=== PATIENT | female | born 1995 | race African-American/Black ===

== ENCOUNTER 2022-04-29 09:44 | Emergency (ER) | payer OTHER, SELFPAY ==
--- NOTE | ~2022-04-29 | US_ITS ---
EXAMINATION: US OBSTETRICAL ULTRASOUND CLINICAL INFORMATION: Abdominal cramping, spotting. Beta hCG of 24 COMPARISON: None. LMP: 03/06/2022. Gestational age by maternal dates is 4 weeks, 6 days. Estimated date of delivery by maternal dates is 12/31/2022. TECHNIQUE: Multiple 2-D grayscale and Doppler transabdominal/transvaginal ultrasound images of the pelvis were obtained. FINDINGS: Uterus: Anteverted/anteflexed with homogeneous myometrial echotexture. The endometrial stripe measures up to 1.2 cm at the level the fundus without focal abnormality. No gestational sac was identified. The cervix is closed without abnormality. No free fluid in the cul-de-sac. Right ovary: 3.6 x 2.0 x 2.7 cm with a volume of 10.3 mL. No adnexal abnormality. Doppler showed no abnormality. Left ovary: 1.7 x 1.6 x 1.6 cm with a volume of 2.2 mL. No adnexal abnormality. Doppler showed no abnormality. US/US OB pelvic and transvaginal IMPRESSION: No intrauterine or extrauterine gestation identified. Continued correlation with beta-hCG levels is recommended. If beta-hCG levels rise, follow-up pelvic ultrasound is recommended as clinically indicated.
[2022-04-29 10:07] VITALS: BP 120/60; PULSE 65; RESP 16; TEMP 36.8; O2SAT 95; BMI 26.6
[2022-04-29 10:25] LABS: MANUAL DIFF FLAG NO
[2022-04-29 10:27] LABS: Basophils Percent Auto 0.5 % (0-2); Eosinophils Absolute Auto 0.1 X10*3/uL (0.0-0.4); Eosinophils Percent Auto 0.9 % (0-4); Hematocrit 45.3 % (37.0-47.0); Hemoglobin 15.4 g/dl (12.0-16.0); Imm Gran Abs Auto 0.03 X10*3/uL (0.00-0.03); Imm Gran Pct Auto 0.4 % (0.0-0.4); Lymphocytes Percent Auto 35.5 % (20-40); Mean Corpuscular Hemoglobin 28.9 pg (27.0-33.0); Mean Corpuscular Volume 85.2 fL (80.0-98.0); Monocytes Absolute Auto 0.4 X10*3/uL (0.1-1.2); Monocytes Percent Auto 5.1 % (2-11); Neutrophils Absolute Auto 4.9 x10*3/uL (2.0-8.3); Neutrophils Percent Auto 57.6 % (45-73); Platelet Count 372 X10*3/uL (160-400); Red Blood Count 5.32 X10*6/uL (4.20-5.50); Red Cell Distribution Width 13.1 % (11.0-16.0); White Blood Count 8.5 X10*3/uL (4.8-10.8)
[2022-04-29 10:30] VITALS: BP 129/82; PULSE 76; RESP 16; TEMP 36.8; O2SAT 96
--- NOTE | 2022-04-29 10:31 | ED_ITS ---
HPI - General Chief complaint: Vaginal Bleeding Stated complaint: 5 WEEKS SPOTTING Time Seen by Provider: 04/29/22 09:48 Source: patient Mode of arrival: ambulatory History of Present Illness HPI Narrative: 26-year-old female at about 4-5 weeks gestation presenting to the ED complaining of abdominal cramping and light vaginal spotting since this morning. Admits had 2 HCGs drawn recently which were not rising appropriately, one 23 and repeat 28, patient was instructed to come to the emergency department. Denies fever, chills, nausea, vomiting, vaginal discharge, dysuria/hematuria, flank pain MD Complaint: vaginal bleeding Onset (ago): hour(s) Related Data Allergies Allergy/AdvReac Type Severity Reaction Status Date / Time No Known Allergies Allergy Unverified 07/18/20 18:54 [No Known Allergies*] Review of Systems Review of Systems: Constitutional: No Fever, No Chills, No Fatigue, No Malaise ENT/Mouth: No Ear Pain, No Hoarseness, No sore throat, No Rhinorrhea, No Swallowing Difficulty Eyes: No Eye Pain, No Swelling, No Redness Cardiovascular: No Chest Pain, No SOB, No Dyspnea on Exertion, No Edema, No Palpitations Respiratory: No Cough, No Sputum, No Dyspnea Gastrointestinal: No Nausea, No Vomiting, No Diarrhea, No Constipation, + Abdominal pain Genitourinary: + vaginal spotting, No Dysuria, No Urinary Frequency, No Hematuria, No Flank Pain, No Urinary Flow Changes Musculoskeletal: No joint pain, No Myalgias, No Joint Swelling Skin: No Skin Lesions, No rash Neuro: No Weakness, No Dizziness, No Headache Yes all other systems are reviewed and are negative [facility] Past Medical History Attestation statement: The following information was validated with the patient. Social History Social History Advance Directives: No Advance Directives Information Provided: No Patient : Yes Physical Exam Vital Signs: Vital Signs: Last Vital Signs Temp 98.2 F 04/29/22 10:30 Pulse 67 04/29/22 13:56 Resp 14 04/29/22 13:56 BP 112/67 04/29/22 13:56 Pulse Ox 100 04/29/22 13:56 O2 Del Method 04/29/22 13:56 BMI result Body Mass Index 26.6 Const: General: cooperative, healthy appearing, no acute distress, alert and awake Orientation/consciousness: patient oriented x3 Limitations: no limitations HEENT: Head: Yes normal to inspection and Yes atraumatic Ears: hearing grossly normal bilaterally General nose exam: Normal external nose present Face and sinus: Yes normal facial exam Eyes: General: appearance normal, both eyes and all related structures EOM: EOMs intact bilaterally Neck: Neck: Yes normal visual inspection and Yes no meningeal signs Resp: Effort & Inspection: normal respiratory effort and no respiratory distress Cardio: Rate: regular rate Heart sounds: S1 normal heart sound present and S2 normal heart sound present GI: Inspection: Yes normal to inspection Palpation (GI): Soft to palpation, nontender, no guarding and not rigid : General: Yes no CVA tenderness Back/Spine/Pelvis: Back: no CVA tenderness Skin: Rashes: no rashes Wounds: no wounds Neuro: General: patient oriented x3, tone normal and no meningeal signs Gait exam (Neuro): Normal gait present Extrem: General: Yes normal to inspection Course Course Course Narrative: -beta-hCG 24, labs otherwise unremarkable. -patient is B positive > does not require RhoGAM US OB pelvic and transvaginal IMPRESSION: No intrauterine or extrauterine gestation identified. Continued correlation with beta-hCG levels is recommended. If beta-hCG levels rise, follow-up pelvic ultrasound is recommended as clinically indicated. >> will consult OBGYN -consult [facility] Solano who recommended repeat HCG in 48 hours, no Methotrexate recommended at this time. Patient was supplied with a lab slip to go to our lab on Wednesday. Patient also follows with [facility] which she will try to get in with. Discussed worrisome signs and symptoms and strict return precautions including that this is unlikely a viable and could be an ectopic. MDM - OB/Uterine Contractions MDM Narrative Medical decision making narrative: 26-year-old female at about 4-5 weeks gestation presenting to the ED complaining of abdominal cramping and light vaginal spotting since this morning. On exam vital signs stable, NAD/nontoxic appearing, abdomen soft/nontender, no CVA tenderness. On pelvic exam Concern for ectopic vs threatened vs missed vs normal Plan: Labs, UA, pelvic ultrasound Medical Records Attestation: I reviewed the patient's medical records. Lab Data Attestation: I reviewed the patient's lab results. Result diagrams: 04/29/22 10:17 04/29/22 10:17 Labs: Lab Results 04/29/22 04/29/22 04/29/22 Range/Units 10:17 10:17 10:17 WBC 8.5 (4.8-10.8) X10*3/uL RBC 5.32 (4.20-5.50) X10*6/uL Hgb 15.4 (12.0-16.0) g/dl Hct 45.3 (37.0-47.0) % MCV 85.2 (80.0-98.0) fL MCH 28.9 (27.0-33.0) pg MCHC 34.0 (31.0-35.0) g/dl RDW 13.1 (11.0-16.0) % Plt Count 372 (160-400) X10*3/uL MPV 9.0 L (9.4-12.3) fL Immature Gran % (Auto) 0.4 (0.0-0.4) % Neut % (Auto) 57.6 (45-73) % Lymph % (Auto) 35.5 (20-40) % [place] % (Auto) 5.1 (2-11) % Eos % (Auto) 0.9 (0-4) % Baso % (Auto) 0.5 (0-2) % Lymph # (Auto) 3.0 (1.2-4.9) X10*3/uL [place] # (Auto) 0.4 (0.1-1.2) X10*3/uL Eos # (Auto) 0.1 (0.0-0.4) X10*3/uL Baso # (Auto) 0.0 (0.0-0.2) X10*3/uL Abs Immat Gran (auto) 0.03 (0.00-0.03) X10*3/uL Absolute Neuts (auto) 4.9 (2.0-8.3) x10*3/uL Absolute Nucleated RBC 0.000 (0.0-0.012) X10*3/uL Nucleated RBC % (auto) 0.0 (0.0-0.2) /100WBC Sodium 139 (135-145) mmol/L Potassium 4.3 (3.3-5.1) mmol/L Chloride 106 (96-108) mmol/L Carbon Dioxide 25 (22-29) mmol/L Anion Gap 12 (12-20) BUN 7 L (9-16) mg/dL Creatinine 0.77 (0.5-1.4) mg/dL Estim Creat Clear Calc 116.4 Estimated GFR > 60 Random Glucose 86 (60-115) mg/dL Calcium 9.8 (8.4-10.2) mg/dL Magnesium 2.1 (1.6-2.6) mg/dL Total Bilirubin 0.8 (0.0-1.0) mg/dL AST 14 (5-31) U/L ALT 11 (0-31) U/L Alkaline Phosphatase 61 (39-117) U/L Total Protein 7.1 (6.5-8.0) g/dL Albumin 4.5 (3.5-5.0) g/dL Lipase 47 (8-78) U/L Beta HCG, Quant 24 mIU/mL Urine Color Urine Appearance Urine pH (5.0-8.0) Ur Specific [place] (1.005-1.025) Urine Protein (NEG-TRACE) MG/DL Urine Glucose (UA) (NEG) MG/DL Urine Ketones (NEG) MG/DL Urine Blood (NEG) Urine Nitrite (NEG) Ur Leukocyte Esterase (NEG) Blood Type 04/29/22 04/29/22 Range/Units 10:43 11:49 WBC (4.8-10.8) X10*3/uL RBC (4.20-5.50) X10*6/uL Hgb (12.0-16.0) g/dl Hct (37.0-47.0) % MCV (80.0-98.0) fL MCH (27.0-33.0) pg MCHC (31.0-35.0) g/dl RDW (11.0-16.0) % Plt Count (160-400) X10*3/uL MPV (9.4-12.3) fL Immature Gran % (Auto) (0.0-0.4) % Neut % (Auto) (45-73) % Lymph % (Auto) (20-40) % [place] % (Auto) (2-11) % Eos % (Auto) (0-4) % Baso % (Auto) (0-2) % Lymph # (Auto) (1.2-4.9) X10*3/uL [place] # (Auto) (0.1-1.2) X10*3/uL Eos # (Auto) (0.0-0.4) X10*3/uL Baso # (Auto) (0.0-0.2) X10*3/uL Abs Immat Gran (auto) (0.00-0.03) X10*3/uL Absolute Neuts (auto) (2.0-8.3) x10*3/uL Absolute Nucleated RBC (0.0-0.012) X10*3/uL Nucleated RBC % (auto) (0.0-0.2) /100WBC Sodium (135-145) mmol/L Potassium (3.3-5.1) mmol/L Chloride (96-108) mmol/L Carbon Dioxide (22-29) mmol/L Anion Gap (12-20) BUN (9-16) mg/dL Creatinine (0.5-1.4) mg/dL Estim Creat Clear Calc Estimated GFR Random Glucose (60-115) mg/dL Calcium (8.4-10.2) mg/dL Magnesium (1.6-2.6) mg/dL Total Bilirubin (0.0-1.0) mg/dL AST (5-31) U/L ALT (0-31) U/L Alkaline Phosphatase (39-117) U/L Total Protein (6.5-8.0) g/dL Albumin (3.5-5.0) g/dL Lipase (8-78) U/L Beta HCG, Quant mIU/mL Urine Color YELLOW Urine Appearance HAZY Urine pH 6.5 (5.0-8.0) Ur Specific [place] 1.020 (1.005-1.025) Urine Protein NEG (NEG-TRACE) MG/DL Urine Glucose (UA) NEG (NEG) MG/DL Urine Ketones NEG (NEG) MG/DL Urine Blood NEG (NEG) Urine Nitrite NEG (NEG) Ur Leukocyte Esterase NEG (NEG) Blood Type B Positive Discharge Plan Discharge Clinical Impression: Elevated serum hCG, Vaginal spotting, Abdominal cramping Patient Disposition: Home, Self-Care Instructions: Abdominal Pain in (ED) Additional Instructions: Your hCG was 24 today YOU NEED REPEAT LABS IN 48 HOURS, EITHER AT OUR LAB OR AT YOUR OBGYN It is unlikely this is a viable , this could be an ectopic, is to to soon to tell exactly at this time. If you develop constant worsening abdominal pain, persistent vaginal bleeding, vaginal discharge, nausea or vomiting please return to the emergency department Referrals: Eugene Salgado MD [Physician] - 2 days
[2022-04-29 10:44] LABS: Alanine Aminotransferase 11 U/L (0-31); Albumin Level 4.5 g/dL (3.5-5.0); Alkaline Phosphatase 61 U/L (39-117); Anion Gap 12 (12-20); Aspartate Amino Transferase 14 U/L (5-31); Bilirubin Total 0.8 mg/dL (0.0-1.0); Blood Urea Nitrogen 7 mg/dL (9-16); Calcium 9.8 mg/dL (8.4-10.2); Carbon Dioxide 25 mmol/L (22-29); Chloride 106 mmol/L (96-108); Creatinine Clr Calc Pharmacy 116.4; Estimated Glomerular Filt Rate > 60; Glucose Random 86 mg/dL (60-115); Potassium 4.3 mmol/L (3.3-5.1); Sodium 139 mmol/L (135-145); Total Protein 7.1 g/dL (6.5-8.0)
[2022-04-29 10:47] LABS: HCG Quantitative 24 mIU/mL
[2022-04-29 10:50] LABS: Lipase 47 U/L (8-78); Magnesium 2.1 mg/dL (1.6-2.6)
[2022-04-29 12:00] VITALS: BP 98/59; PULSE 82; RESP 17; O2SAT 100
[2022-04-29 12:02] LABS: Appearance Urine HAZY; Color Urine YELLOW; Glucose Urine UA NEG (NEG); Leukocyte Esterase Urine NEG (NEG); Nitrite Urine NEG (NEG); PH 6.5 (5.0-8.0); Urine Blood NEG (NEG); Urine Ketones NEG (NEG); Urine Protein NEG (NEG-TRACE)
[2022-04-29 13:56] VITALS: BP 112/67; PULSE 67; RESP 14; O2SAT 100
--- NOTE | 2022-04-29 15:14 | P.CONOB_ITS ---
EMPLOYMENT EDUCATIONAL [employer]ORD - CN: HPI Data of Consult Consult date: 04/29/22 Primary Care Provider: Dorinda Mcgowan MD Consult Narrative Narrative: I was consulted on Tessy Roberts who is a 26 year old female at ? weeks gestation presenting to the ED complaining of abdominal cramping and light vaginal spotting since this morning.? The patient had 2 HCGs drawn recently which were not rising appropriately, one 23 and repeat 28, patient was instructed to come to the emergency department.? Denies fever, chills, nausea, vomiting, vaginal discharge, dysuria/hematuria, flank pain. Blood type Rh positive the following workup was done in the emergency room. H&H 15.4/45.3, hCG is 24. Ultrasound showed the following: No intrauterine or extrauterine gestation identified. Continued correlation with beta-hCG levels is recommended. If beta-hCG levels rise, follow-up pelvic ultrasound is recommended as clinically indicated. cc:: CC: OB PMFSH Social History Social History Advance Directives: No Advance Directives Information Provided: No Patient : Yes Meds Allergies Allergy/AdvReac Type Severity Reaction Status Date / Time No Known Allergies Allergy Unverified 07/18/20 18:54 [No Known Allergies*] [employer] Physical Exam Vitals Vital signs: Temp Pulse Resp BP Pulse Ox O2 Del Method 98.2 F 67 14 112/67 100 04/29/22 10:30 04/29/22 13:56 04/29/22 13:56 04/29/22 13:56 04/29/22 13:56 04/29/22 13:56 BMI result Body Mass Index 26.6 Constitutional General Appearance: Healthy appearing, Well-nourished and Well-developed Psychiatric Mood and Affect: active and alert, normal mood and normal affect Skin Appearance: No rashes and No lesions Lungs Respiratory Effort: No intercostal retractions Auscultation: Clear to auscultation Cardiovascular Auscultation: RRR Abdomen Auscultation/Inspection/Palpation: Normal bowel sounds, Soft, Non-distended and No tenderness Female Genitalia (Pelvic) Exam: Deferred Additional Comments: Physical exam per [facility]ARED Malone emergency room , abdominal exam soft nontender pelvic exam within normal [employer]MENT [employer]UC[employer] - Results Labs CBC & Chem 7: 04/29/22 10:17 04/29/22 10:17 Labs: Short CBC 04/29/22 Range/Units 10:17 WBC 8.5 (4.8-10.8) X10*3/uL Hgb 15.4 (12.0-16.0) g/dl Hct 45.3 (37.0-47.0) % Plt Count 372 (160-400) X10*3/uL BMP 04/29/22 10:17 Sodium 139 Potassium 4.3 Chloride 106 Carbon Dioxide 25 BUN 7 L Creatinine 0.77 Calcium 9.8 Liver Function 04/29/22 Range/Units 10:17 Total Bilirubin 0.8 (0.0-1.0) mg/dL AST 14 (5-31) U/L ALT 11 (0-31) U/L Alkaline Phosphatase 61 (39-117) U/L Albumin 4.5 (3.5-5.0) g/dL Urine 04/29/22 Range/Units 11:49 Urine Color YELLOW Urine Appearance HAZY Urine pH 6.5 (5.0-8.0) Ur Specific [place] 1.020 (1.005-1.025) Urine Protein NEG (NEG-TRACE) MG/DL Urine Glucose (UA) NEG (NEG) MG/DL Imaging US - abdomen: Radiologist's impression: ITS Impressions Pelvic/Transvag US 04/29/22 11:34 IMPRESSION: No intrauterine or extrauterine gestation identified. Continued correlation with beta-hCG levels is recommended. If beta-hCG levels rise, follow-up pelvic ultrasound is recommended as clinically indicated. Assessment and Plan (1) Early stage of : Status: Acute Discussed with YARED Malone in the emergency room the following Since hCG is not rising appropriately differential diagnosis includes ectopic versus SAB. Since the pelvic Ultrasound is negative and physical exam is benign, I recommend that the patient follows -up with her OBGYN office yara with repeat hCG in 48 hours, ectopic and SAB warnings to be given to patient, she is to come back to emergency room in case of abdominal pain, vaginal bleeding. This note was generated with a voice recognition program. Some errors may have been overlooked during the review of this note. Sometimes these errors may affect the content or meaning of a given sentence. I spent a total of 20 minutes reviewing the chart, communicating with the ER provider and documenting in the medical record
== END 2022-04-29 15:09 | disposition home or self-care (01) ==
PROVIDERS: Physician Assistant; Emergency Provider Emergency Medicine; PCP Internal Medicine
DX: O02.81 Inappropriate change in quantitative human chorionic gonadotropin (hCG) in early pregnancy (principal); O26.851 Spotting complicating pregnancy, first trimester; O26.891 Other specified pregnancy related conditions, first trimester; R10.9 Unspecified abdominal pain; Z3A.01 Less than 8 weeks gestation of pregnancy
CPT/HCPCS: 36415; 76801; 76817; 80053; 81003; 83690; 83735; 84702; 85025; 86900; 86901; 99284

== ENCOUNTER 2022-04-30 15:52 | Emergency (ER) | payer OTHER, SELFPAY ==
--- NOTE | ~2022-04-30 | US_ITS ---
EXAMINATION: US OBSTETRICAL ULTRASOUND CLINICAL INFORMATION: Positive hCG with vaginal bleeding. COMPARISON: 04/29/2022.. LMP: 03/26/2022. Gestational age by maternal dates is 5 weeks. Estimated date of delivery by maternal dates is 12/31/2022. TECHNIQUE: Ultrasound of the maternal pelvis is performed using transabdominal and transvaginal transducers. Transvaginal imaging is performed due to inadequate visualization transabdominally. M-mode Doppler is also performed. FINDINGS: The uterus is anteverted and measures 7.7 x 4.2 x 4.3 cm. No fibroids are identified. The endometrium measures 0.4 cm in thickness without discrete focal abnormality. No evidence of an intrauterine gestational sac. The ovaries are normal in morphology with preserved flow at the moment of this examination. The right ovary measures 2.7 x 1.7 x 1.6 cm and the left ovary measures 2.2 x 2.1 x 1.5 cm. No adnexal mass. No evidence of free fluid. US/US OB pelvic and transvaginal IMPRESSION: No sonographic evidence of a gestational sac. Recommend continued correlation with quantitative beta hCG to determine further management. The endometrium measures 0.4 cm in thickness with no discrete focal abnormality nor associated vascularity.
--- NOTE | ~2022-04-30 | US_ITS ---
EXAMINATION: US OBSTETRICAL ULTRASOUND CLINICAL INFORMATION: Positive hCG with vaginal bleeding. COMPARISON: 04/29/2022.. LMP: 03/26/2022. Gestational age by maternal dates is 5 weeks. Estimated date of delivery by maternal dates is 12/31/2022. TECHNIQUE: Ultrasound of the maternal pelvis is performed using transabdominal and transvaginal transducers. Transvaginal imaging is performed due to inadequate visualization transabdominally. M-mode Doppler is also performed. FINDINGS: The uterus is anteverted and measures 7.7 x 4.2 x 4.3 cm. No fibroids are identified. The endometrium measures 0.4 cm in thickness without discrete focal abnormality. No evidence of an intrauterine gestational sac. The ovaries are normal in morphology with preserved flow at the moment of this examination. The right ovary measures 2.7 x 1.7 x 1.6 cm and the left ovary measures 2.2 x 2.1 x 1.5 cm. No adnexal mass. No evidence of free fluid. US/US pelvic ovarian doppler IMPRESSION: No sonographic evidence of a gestational sac. Recommend continued correlation with quantitative beta hCG to determine further management. The endometrium measures 0.4 cm in thickness with no discrete focal abnormality nor associated vascularity.
[2022-04-30 15:57] VITALS: BP 112/69; PULSE 67; RESP 18; TEMP 36.4; O2SAT 99; BMI 29.2
--- NOTE | 2022-04-30 16:24 | ED_ITS ---
HPI - General Chief complaint: Vaginal Bleeding Stated complaint: 5 wks spotting Time Seen by Provider: 04/30/22 16:23 Source: patient Mode of arrival: ambulatory Limitations: no limitations History of Present Illness HPI Narrative: 26-year-old female approximately 4-5 weeks gestation presenting to the emergency department with complaints of vaginal bleeding X3 days. Patient tells me that she was seen here yesterday for abdominal pain and vaginal bleeding, she tells me that they were able to identify what was causing the issue. She reports that she is having vaginal bleeding she describes as spotting, she only notes the blood when she wipes. She tells me it got worse after having intercourse this morning. At this time she denies any pain with intercourse nausea, vomiting, abdominal pain, fevers, chills chest pain, shortness of breath. LMP March 26, 2022 Last 7 years ago MD Complaint: vaginal bleeding Related Data Previous Rx's Medication Instructions Recorded prenat.vits,roger,[id number] 1 tab PO BEDTIME #30 tabs 04/30/22 Allergies Allergy/AdvReac Type Severity Reaction Status Date / Time No Known Allergies Allergy Unverified 07/18/20 18:54 [No Known Allergies*] Review of Systems Review of Systems: Constitutional : No Weight loss, No Fever, No Chills, No Fatigue, No Malaise ENT/Mouth : No sore throat, No Rhinorrhea Eyes: No Eye Pain, No Swelling, No Redness Cardiovascular : No Chest Pain, No SOB, No Dyspnea on Exertion, No Orthopnea, No Edema, No Palpitations Respiratory : No Cough, No Sputum, No Wheezing Gastrointestinal : No Nausea, No Vomiting, No Diarrhea, No Constipation, No abdominal Pain, No Hematochezia, No Melena Genitourinary : No Dysuria, No Urinary Frequency, No Hematuria, + vaginal spotting Musculoskeletal : No joint pain, No Myalgias, No Joint Swelling Skin : No Skin Lesions, No rash Neuro : No Weakness, No Numbness, No Dizziness, No Headache Psych : No Anxiety/Panic, No Depression All other systems reviewed and are negative Yes all other systems are reviewed and are negative [facility] Past Medical History Attestation statement: The following information was validated with the patient. Source: old records reviewed and nursing notes reviewed Social History Social History Advance Directives: No Advance Directives Information Provided: No Physical Exam Vital Signs: Vital Signs: Last Vital Signs Temp 97.6 F 04/30/22 15:57 Pulse 67 04/30/22 15:57 Resp 18 04/30/22 15:57 BP 112/69 04/30/22 15:57 Pulse Ox 99 04/30/22 15:57 O2 Del Method 04/30/22 15:57 BMI result Body Mass Index 29.2 VSS Appearance: Alert.? Oriented X3.? No acute distress.? Head: Normocephalic, atraumatic, no step-offs or deformities Eyes: Pupils equal, round and reactive to light.? ENT: Pharynx normal.? Neck: Normal inspection.? Neck supple.? CVS: Normal heart rate and rhythm.? Pulses normal.? Respiratory: No respiratory distress.? Breath sounds normal.? Abdomen: Soft and nontender.? Skin: Skin warm and dry.? Normal skin color.? Normal skin turgor.? Sensitive exam: Normal external genitalia no lumps, lesions or masses noted, cervical os closed there is dark red blood noted within the vaginal canal and around the cervical os, unable to visualize any POC. No adnexal tenderness Extremities: No lower extremity edema.? No calf ttp. 5/5 strength to bilateral upper and lower extremities Neuro: Oriented X 3.? No motor deficit.? No sensory deficit. CN 2-12 intact Course Reevaluation(s) Reevaluation #1: Spoke to Dr. Naomi Freitas, today's hCG is 26, he explains to me that based off the patient's last menstrual period which was March 26, patient is around 5 weeks , and her hCG is not adequately rising which raises concerns for possible spontaneous or ectopic . I did discuss with him yes terday that patient had an ultrasound which was normal, however, he recommends a repeat ultrasound to rule out ectopic . Likely this can be managed on an outpatient basis with either a D&C, methotrexate or expectant management however will rule out life-threatening diagnoses. Time: 17:35 Reevaluation #2: CBC within normal limits. Chemistry with no acute electrolyte abnormalities requiring intervention. HCG 26, hCG yesterday was 24. Ultrasound pending at this time. Time: 19:16 Reevaluation #3: Ultrasound with no sonographic evidence of gestational sac. Recommend correlation with quantitative beta hCG. Endometrium 0.[address] Salgado came in to speak to patient. He educated patient on options. Patient would like to go with expected management. He did discussed methotrexate and suction D&C with patient however she did not want this. He recommended she comes in on Wednesday for repeat hCG and on Wednesday for repeat HCG, he will see her in his office on Wednesday. At this time patient will be discharged home with strict return pr ecautions. Advised her to return with new or worsening symptoms. At this time I feel comfortable with discharge home. Has not bleed through a single pad this visit, appears well. Stable vitals hemo dynamically stable. Time: 20:27 MDM - OB/Uterine Contractions MDM Narrative Medical decision making narrative: 1628 26 yo f presents for second day in a row for vaginal spotting worse after intercourse. PE benign Plan- labs, HCG, sensativ exam and obgyn consult Medical Records Attestation: I reviewed the patient's medical records. Lab Data Attestation: I reviewed the patient's lab results. Result diagrams: 04/30/22 16:59 04/30/22 16:59 Labs: Lab Results 04/30/22 04/30/22 04/30/22 Range/Units 16:00 16:59 16:59 WBC 10.8 (4.8-10.8) X10*3/uL RBC 4.73 (4.20-5.50) X10*6/uL Hgb 13.6 (12.0-16.0) g/dl Hct 40.0 (37.0-47.0) % MCV 84.6 (80.0-98.0) fL MCH 28.8 (27.0-33.0) pg MCHC 34.0 (31.0-35.0) g/dl RDW 12.9 (11.0-16.0) % Plt Count 357 (160-400) X10*3/uL MPV 8.8 L (9.4-12.3) fL Immature Gran % (Auto) 0.3 (0.0-0.4) % Neut % (Auto) 54.1 (45-73) % Lymph % (Auto) 37.2 (20-40) % [place] % (Auto) 6.8 (2-11) % Eos % (Auto) 1.1 (0-4) % Baso % (Auto) 0.5 (0-2) % Lymph # (Auto) 4.0 (1.2-4.9) X10*3/uL [place] # (Auto) 0.7 (0.1-1.2) X10*3/uL Eos # (Auto) 0.1 (0.0-0.4) X10*3/uL Baso # (Auto) 0.1 (0.0-0.2) X10*3/uL Abs Immat Gran (auto) 0.03 (0.00-0.03) X10*3/uL Absolute Neuts (auto) 5.9 (2.0-8.3) x10*3/uL Absolute Nucleated RBC 0.000 (0.0-0.012) X10*3/uL Nucleated RBC % (auto) 0.0 (0.0-0.2) /100WBC Sodium 138 (135-145) mmol/L Potassium 4.1 (3.3-5.1) mmol/L Chloride 107 (96-108) mmol/L Carbon Dioxide 24 (22-29) mmol/L Anion Gap 11 L (12-20) BUN 7 L (9-16) mg/dL Creatinine 0.75 (0.5-1.4) mg/dL Estim Creat Clear Calc 112.2 Estimated GFR > 60 Random Glucose 77 (60-115) mg/dL Calcium 9.4 (8.4-10.2) mg/dL Total Bilirubin 0.7 (0.0-1.0) mg/dL AST 15 (5-31) U/L ALT 8 (0-31) U/L Alkaline Phosphatase 54 (39-117) U/L Total Protein 6.4 L (6.5-8.0) g/dL Albumin 4.1 (3.5-5.0) g/dL Beta HCG, Quant 26 mIU/mL Critical Care Time Critical Care Time Critical Care Time: Yes Total Critical Care Time: 35 Attestation: I attest to this time spent taking care of the patient, obtaining history, physical, reviewing labs, imaging, speaking to my attending, speaking to specialist. Discharge Plan Discharge Clinical Impression: Threatened , Vaginal bleeding in Patient Disposition: Home, Self-Care Additional Instructions: Take your medications as prescribed. If you were prescribed antibiotics today, it is important that you take your medication to their entirety, do not skip any doses, do not finish them early. Follow-up with your primary care provider this week. Return to the emergency department with new or worsening symptoms. Such as fevers, chills, chest pain, shortness of breath, nausea, vomiting, dizziness, headache, vision changes, lethargy, worsening vaginal bleeding In case of emergency call 911 If you are bleeding through more than 2 pads per hour you must seek medical attention immediately. Please come to have an HCG done on Wednesday at the lab and on Wednesday. Please follow-up with Dr. Salgado as discussed on Wednesday. Please take over the counter vitamis. Prescriptions: New prenat.vits,roger,[id number] Tablet 1 tab PO BEDTIME Qty: 30 0RF Referrals: Dorinda Jones MD [Primary Care Provider] - 2 days Eugene Salgado MD [Physician] - 2 days Stand Alone Forms: Work/School Release
[2022-04-30 16:32] LABS: HCG Quantitative 26 mIU/mL
[2022-04-30 17:06] LABS: MANUAL DIFF FLAG NO
[2022-04-30 17:08] LABS: Basophils Absolute Auto 0.1 X10*3/uL (0.0-0.2); Basophils Percent Auto 0.5 % (0-2); Eosinophils Absolute Auto 0.1 X10*3/uL (0.0-0.4); Eosinophils Percent Auto 1.1 % (0-4); Hemoglobin 13.6 g/dl (12.0-16.0); Imm Gran Abs Auto 0.03 X10*3/uL (0.00-0.03); Imm Gran Pct Auto 0.3 % (0.0-0.4); Lymphocytes Percent Auto 37.2 % (20-40); Mean Corpuscular Hemoglobin 28.8 pg (27.0-33.0); Mean Corpuscular Volume 84.6 fL (80.0-98.0); Mean Platelet Volume 8.8 fL (9.4-12.3); Monocytes Absolute Auto 0.7 X10*3/uL (0.1-1.2); Monocytes Percent Auto 6.8 % (2-11); Neutrophils Absolute Auto 5.9 x10*3/uL (2.0-8.3); Neutrophils Percent Auto 54.1 % (45-73); Platelet Count 357 X10*3/uL (160-400); Red Blood Count 4.73 X10*6/uL (4.20-5.50); Red Cell Distribution Width 12.9 % (11.0-16.0); White Blood Count 10.8 X10*3/uL (4.8-10.8)
[2022-04-30 17:24] LABS: Alanine Aminotransferase 8 U/L (0-31); Albumin Level 4.1 g/dL (3.5-5.0); Alkaline Phosphatase 54 U/L (39-117); Anion Gap 11 (12-20); Aspartate Amino Transferase 15 U/L (5-31); Bilirubin Total 0.7 mg/dL (0.0-1.0); Blood Urea Nitrogen 7 mg/dL (9-16); Calcium 9.4 mg/dL (8.4-10.2); Carbon Dioxide 24 mmol/L (22-29); Chloride 107 mmol/L (96-108); Creatinine Clr Calc Pharmacy 112.2; Estimated Glomerular Filt Rate > 60; Glucose Random 77 mg/dL (60-115); Potassium 4.1 mmol/L (3.3-5.1); Sodium 138 mmol/L (135-145); Total Protein 6.4 g/dL (6.5-8.0)
--- NOTE | 2022-04-30 20:46 | P.CONOB_ITS ---
DISTRIBUTION SUPERVISOR - CN: HPI Data of Consult Consult date: 04/30/22 Primary Care Provider: Dorinda Mcgowan MD Consult Narrative Narrative: I was consulted on Tessy Roberts who is a 26 year old female who presented to the emergency room complaining of spotting after intercourse, no pelvic cramping/abdominal pain no nausea or vomiting or any other symptoms . The patient LMP is on 03/26, making her by today at 5 weeks of gestation. The patient had a positive test on 04/22 this was followed on 04/23 by beta HCG ordered by her OBGYN at [place], hCG was 22 repeat hCG on 04/27 was 28. The patient yesterday had some spotting and cramping came to emergency room hCG was 26, ultrasound showed no IUP and no adnexal masses, the patient was discharged home to follow-up with her OBGYN. Rh positive cc:: CC: PEDIATRIC ASSISTANT - Review of Systems Review of Systems ROS Unobtainable: All systems reviewed & are unremarkable except as noted in HPI and below Cardiovascular: Denies Palpatations, Loss of consciousness or Chest pain Respiratory: Denies Cough, Wheezing or Shortness of breath Musculoskeletal: Denies Low back pain Gastrointestinal: Denies Heartburn, Constipation, Diarrhea, Nausea or Vomiting Genitourinary: Denies Pain with urination, Burning with urination or Urinary frequency Neurological: Denies Migranes Psychological: Denies Depression OB [facility] Social History Social History Advance Directives: No Advance Directives Information Provided: No Meds Allergies Allergy/AdvReac Type Severity Reaction Status Date / Time No Known Allergies Allergy Unverified 07/18/20 18:54 [No Known Allergies*] DISTRIBUTION SUPERVISOR Physical Exam Vitals Vital signs: Temp Pulse Resp BP Pulse Ox O2 Del Method 97.6 F 67 18 112/69 99 04/30/22 15:57 04/30/22 15:57 04/30/22 15:57 04/30/22 15:57 04/30/22 15:57 04/30/22 15:57 BMI result Body Mass Index 29.2 Constitutional General Appearance: Healthy appearing, Well-nourished and Well-developed Psychiatric Mood and Affect: active and alert, normal mood and normal affect Skin Appearance: No rashes and No lesions Lungs Respiratory Effort: No intercostal retractions Auscultation: Clear to auscultation Cardiovascular Auscultation: RRR Abdomen Auscultation/Inspection/Palpation: Normal bowel sounds, Soft, Non-distended and No tenderness Female Genitalia (Pelvic) Vulva: No lesions Cervix: Grossly normal Uterus: Normal size Adnexa/Parametria: Adnexal Tenderness: None, Adnexal Mass: None, Parametrial Tenderness: None and Parametrial Mass: None Additional Comments: Minimal blood per vagina DISTRIBUTION SUPERVISOR - Results Labs CBC & Chem 7: 04/30/22 16:59 04/30/22 16:59 Labs: Short CBC 04/30/22 Range/Units 16:59 WBC 10.8 (4.8-10.8) X10*3/uL Hgb 13.6 (12.0-16.0) g/dl Hct 40.0 (37.0-47.0) % Plt Count 357 (160-400) X10*3/uL BMP 04/30/22 16:59 Sodium 138 Potassium 4.1 Chloride 107 Carbon Dioxide 24 BUN 7 L Creatinine 0.75 Calcium 9.4 Liver Function 04/30/22 Range/Units 16:59 Total Bilirubin 0.7 (0.0-1.0) mg/dL AST 15 (5-31) U/L ALT 8 (0-31) U/L Alkaline Phosphatase 54 (39-117) U/L Albumin 4.1 (3.5-5.0) g/dL Imaging US - abdomen: Radiologist's impression: ITS Impressions Doppler Study Ultrasound 04/30/22 18:50 IMPRESSION: No sonographic evidence of a gestational sac. Recommend continued correlation with quantitative beta hCG to determine further management. The endometrium measures 0.4 cm in thickness with no discrete focal abnormality nor associated vascularity. Pelvic/Transvag US 04/30/22 18:50 IMPRESSION: No sonographic evidence of a gestational sac. Recommend continued correlation with quantitative beta hCG to determine further management. The endometrium measures 0.4 cm in thickness with no discrete focal abnormality nor associated vascularity. Assessment and Plan (1) Early stage of : Status: Acute Plan GC and chlamydia taken with BV panel. Discussed with the patient the finding on physical exam, benign, ultrasound, and the rate of rise of HCG level is abnormal, specifically below the minimum 49% rate of increase within 48 hours, which is expected in the majority of normal intrauterine gestation. The differential diagnosis discussed with the patient included either early ectopic versus early SAB with a small possibility of normal intrauterine gestation. Options of treatment were discussed with the patient includin- Expected management for the coming 48 hours and repeat HCG with or without pelvic Ultrasound. 2- Treat as if she has tubal with methotrexate or 3- Uterine aspiration. All the pros and cons and risks and benefits of each treatment approach were discussed with the patient. 1-The advantage of expectant management were discussed with the patient, being prevention of possible exposure to teratogenicity or risk of spontaneous in case of an early normal , the risk being delayed diagnosis and treatment of ectopic and possible rupture with all its possible consequences including intra-abdominal bleed and possible . 2- Explained to the patient that the use of curettage as a diagnostic tool is limited by the potential for disruption of a viable . In addition, discussed with the patient that the sensitivity of curettage in finding chorionic villi is only 70 percent. [place] endometrial biopsy is even less sensitive than curettage for detection of villi; sensitivities reported is between 30 and 60 percent. If curettage is performed, serum HCG levels can be followed postcurettage if histopathology does not confirm the clinical impression. When an IUP has been evacuated, hCG levels should drop by at least 15 percent the day after evacuation. There might be an advantage of performing aspiration only on patients with both an HCG concentration below the discriminatory zone and a low doubling rate, since 30 percent of these patients have a nonviable intrauterine gestation, and the remainder have an ectopic . Knowing the results of aspiration avoids unnecessary methotrexate treatment of the 30 percent of patients without ectopic . 3-Furthermore discussed with the patient the 3rd option which is treatment with methotrexate without uterine aspiration. The advantage of early treatment of presumed tubal with methotrexate was discussed with the patient, including but not limited to reducing the risk of ruptured ectopic with all its potential consequences, in addition discussed with the patient methotrexate treatment risks including but not limited to, possible exposure to methotrexate to a normal intra and and increase the risk of spontaneous and congenital anomalies. The patient decided to wait 48 hours repeat HCG and treat accordingly. Instructions given to the patient to the importance of compliance and timely HCG follow-up Q 48 hours for an early and accurate diagnosis, and to call or go to the emergency room if pain or vaginal bleeding occurs; hCG in 48 hours in the outpatient lab, followed by hCG on Friday 05/04 in the emergency room since it is holiday and follow-up on Saturday 05/05 in the office, all questions answered, the patient verbalized understanding and agreed with the plan.
--- NOTE | 2022-04-30 20:52 | PC.NURSE ---
Dr. Salgado was in pt's room to discuss results and further plans. Ant MADRIGAL went to discharge pt and give paperwork, but pt had already left. Dickson VAIL was also informed.
[2022-05-01 01:17] LABS: CT PCR NOT DETECTED (Not Detect.); NG PCR NOT DETECTED (Not Detect.)
== END 2022-04-30 20:54 | disposition home or self-care (01) ==
PROVIDERS: Physician Assistant; Emergency Provider Emergency Medicine; PCP Internal Medicine
DX: O20.0 Threatened abortion (principal); O26.851 Spotting complicating pregnancy, first trimester; Z3A.01 Less than 8 weeks gestation of pregnancy
CPT/HCPCS: 36415; 76801; 76817; 80053; 84702; 85025; 87491; 87591; 93975; 99284

== ENCOUNTER 2022-11-05 11:03 | Emergency (ER) | payer OTHER, SELFPAY ==
--- NOTE | ~2022-11-05 | US_ITS ---
EXAMINATION: US OBSTETRICAL ULTRASOUND CLINICAL INFORMATION: with pain COMPARISON: None. LMP: 09/28/2022. Gestational age by maternal dates is 5 weeks 3 days. Estimated date of delivery by maternal dates is 07/05/2023. TECHNIQUE: Transabdominal endovaginal ultrasound was performed with color flow Doppler imaging. FINDINGS: A gestational sac is present but a pole or yolk sac is not identified. Based upon the gestational sac size of 0.3 cm this would correspond with a gestation of 4 weeks 5 days. MATERNAL ADNEXA: The right maternal ovary measures 2.0 x 1.6 x 1.6 cm. The left maternal ovary measures 3.2 x 2.6 x 2.6 cm. A corpus luteal cyst present measuring 2.0 x 1.5 x 1.5 cm with 2 additional simple cysts measuring 2.3 and 2.4 cm. There is no significant maternal adnexal mass. No maternal pelvic ascites. US/US OB pelvic and transvaginal IMPRESSION: No intrauterine is identified at this time although a gestational sac is present. Correlation with beta hCG levels is recommended, as nonvisualization of a gestational sac could be due to an early stage of . Short-term sonographic follow-up and serial beta hCG levels are recommended to assess for development of an intrauterine gestational sac.
--- NOTE | 2022-11-05 11:21 | ED.GENADULT ---
HPI - General Adult Related Data Previous Rx's Medication Instructions Recorded prenat.vits,roger,[id number] 1 tab PO BEDTIME #30 tabs 04/30/22 Allergies Allergy/AdvReac Type Severity Reaction Status Date / Time No Known Allergies Allergy Verified 11/05/22 11:31 [No Known Allergies*] [facility] Social History Social History Advance Directives: No Advance Directives Information Provided: Yes Physical Exam ED Vital Signs: Vital Signs - 24 hr 11/05/22 11:27 Temperature 97.0 F Pulse Rate 75 Respiratory Rate 18 Blood Pressure 130/43 L Pulse Oximetry 100 Oxygen Delivery Method Room Air BMI result Body Mass Index 29.2 Course Course Course Narrative: RME: 27-year-old female sent by her OBGYN. Patient last menstrual period September 28. Patient tested herself positive for home test on . Patient started having left shoulder pain, pelvic pain, and no appetite started last night. Patient denies spotting, denies presyncope, syncope. Reports chest pressure. Patient reports that she had miscarriage back in May of 2022 and she had similar symptoms. Patient's OBGYN wants to make sure that she does not have ectopic . Patient's vital signs are stable. Patient is stable to go to the waiting room. Will draw labs hCG quantitative, urinalysis, will order ultrasound. Medical Decision Making Lab Data 11/05/22 11:39 11/05/22 11:39 Labs: Lab Results 11/05/22 11/05/22 Range/Units 11:39 11:39 WBC 11.2 H (4.8-10.8) X10*3/uL RBC 4.85 (4.20-5.50) X10*6/uL Hgb 14.4 (12.0-16.0) g/dl Hct 41.1 (37.0-47.0) % MCV 84.7 (80.0-98.0) fL MCH 29.7 (27.0-33.0) pg MCHC 35.0 (31.0-35.0) g/dl RDW 12.9 (11.0-16.0) % Plt Count 373 (160-400) X10*3/uL MPV 9.2 L (9.4-12.3) fL Immature Gran % (Auto) 0.4 (0.0-0.4) % Neut % (Auto) 58.8 (45-73) % Lymph % (Auto) 33.5 (20-40) % [place] % (Auto) 6.0 (2-11) % Eos % (Auto) 0.9 (0-4) % Baso % (Auto) 0.4 (0-2) % Lymph # (Auto) 3.8 (1.2-4.9) X10*3/uL [place] # (Auto) 0.7 (0.1-1.2) X10*3/uL Eos # (Auto) 0.1 (0.0-0.4) X10*3/uL Baso # (Auto) 0.1 (0.0-0.2) X10*3/uL Abs Immat Gran (auto) 0.04 H (0.00-0.03) X10*3/uL Absolute Neuts (auto) 6.6 (2.0-8.3) x10*3/uL Absolute Nucleated RBC 0.000 (0.0-0.012) X10*3/uL Nucleated RBC % (auto) 0.0 (0.0-0.2) /100WBC Sodium 139 (135-145) mmol/L Potassium 3.8 (3.3-5.1) mmol/L Chloride 108 (96-108) mmol/L Carbon Dioxide 23 (22-29) mmol/L Anion Gap 12 (12-20) BUN 7 L (9-16) mg/dL Creatinine 0.78 (0.5-1.4) mg/dL Estim Creat Clear Calc 106.9 Estimated GFR > 60 Random Glucose 85 (60-115) mg/dL Calcium 9.5 (8.4-10.2) mg/dL Beta HCG, Quant 1337 mIU/mL Discharge Plan Discharge Patient Disposition: Elopement Prescriptions: No Action prenat.vits,roger,[id number] Tablet 1 tab PO BEDTIME Qty: 30 0RF Discharge Date/Time: 11/05/22 15:46
[2022-11-05 11:27] VITALS: BP 130/43; PULSE 75; RESP 18; TEMP 36.1; O2SAT 100; BMI 29.2
[2022-11-05 11:47] LABS: MANUAL DIFF FLAG NO
[2022-11-05 11:50] LABS: Basophils Absolute Auto 0.1 X10*3/uL (0.0-0.2); Basophils Percent Auto 0.4 % (0-2); Eosinophils Absolute Auto 0.1 X10*3/uL (0.0-0.4); Eosinophils Percent Auto 0.9 % (0-4); Hematocrit 41.1 % (37.0-47.0); Hemoglobin 14.4 g/dl (12.0-16.0); Imm Gran Abs Auto 0.04 X10*3/uL (0.00-0.03); Imm Gran Pct Auto 0.4 % (0.0-0.4); Lymphocytes Absolute Auto 3.8 X10*3/uL (1.2-4.9); Lymphocytes Percent Auto 33.5 % (20-40); Mean Corpuscular Hemoglobin 29.7 pg (27.0-33.0); Mean Corpuscular Volume 84.7 fL (80.0-98.0); Mean Platelet Volume 9.2 fL (9.4-12.3); Monocytes Absolute Auto 0.7 X10*3/uL (0.1-1.2); Neutrophils Absolute Auto 6.6 x10*3/uL (2.0-8.3); Neutrophils Percent Auto 58.8 % (45-73); Platelet Count 373 X10*3/uL (160-400); Red Blood Count 4.85 X10*6/uL (4.20-5.50); Red Cell Distribution Width 12.9 % (11.0-16.0); White Blood Count 11.2 X10*3/uL (4.8-10.8)
[2022-11-05 12:13] LABS: Anion Gap 12 (12-20); Blood Urea Nitrogen 7 mg/dL (9-16); Calcium 9.5 mg/dL (8.4-10.2); Carbon Dioxide 23 mmol/L (22-29); Chloride 108 mmol/L (96-108); Creatinine Clr Calc Pharmacy 106.9; Estimated Glomerular Filt Rate > 60; Glucose Random 85 mg/dL (60-115); Potassium 3.8 mmol/L (3.3-5.1); Sodium 139 mmol/L (135-145)
[2022-11-05 12:17] LABS: HCG Quantitative 1337 mIU/mL
== END 2022-11-05 15:46 | disposition left against medical advice (07) ==
PROVIDERS: Nurse Practitioner Family; Emergency Provider Emergency Medicine; PCP Internal Medicine
DX: R10.2 Pelvic and perineal pain (principal); R07.89 Other chest pain; Z20.2 Contact with and (suspected) exposure to infections with a predominantly sexual mode of transmission; Z79.899 Other long term (current) drug therapy
CPT/HCPCS: 36415; 76801; 76817; 80048; 84702; 85025; 99281; 99284

== ENCOUNTER 2023-07-19 11:06 | Emergency (ER) | payer OTHER, SELFPAY ==
[2023-07-19 11:30] VITALS: BP 134/54; PULSE 66; RESP 20; TEMP 36.8; O2SAT 100; BMI 31.7
--- NOTE | 2023-07-19 11:33 | ED.PREGNANCY ---
HPI - General Chief complaint: OB Stated complaint: Miscarriage? Related Data Previous Rx's Medication Instructions Recorded prenat.vits,roger,[id number]-[id number]-[id number] 1 tab PO BEDTIME #30 tabs 04/30/22 Allergies Allergy/AdvReac Type Severity Reaction Status Date / Time No Known Allergies Allergy Verified 07/19/23 11:35 [No Known Allergies*] [facility] Social History Social History Advance Directives: No Physical Exam Vital Signs: Vital Signs: Last Vital Signs Temp 98.2 F 07/19/23 11:30 Pulse 66 07/19/23 11:30 Resp 20 07/19/23 11:30 BP 134/54 L 07/19/23 11:30 Pulse Ox 100 07/19/23 11:30 O2 Del Method Room Air 07/19/23 11:30 BMI result Body Mass Index 31.7 Course Course Course Narrative: RME - 28 yo female currently ?6 weeks with LMP 06/02/23 who presents with lower abdominal cramping that started yesterday. She reports the pain is similar to her 2 prior miscarriages, 7/10 in intensity. Was spotting yesterday but not today. Plan: labs and U/S if Reevaluation(s) Reevaluation #1: patient eloped prior to full evaluation and treatment Medical Decision Making Lab Data 07/19/23 11:42 07/19/23 11:42 Labs: Lab Results 07/19/23 Range/Units 11:42 WBC 10.5 (4.8-10.8) X10*3/uL RBC 4.74 (4.20-5.50) X10*6/uL Hgb 14.5 (12.0-16.0) g/dl Hct 40.5 (37.0-47.0) % MCV 85.4 (80.0-98.0) fL MCH 30.6 (27.0-33.0) pg MCHC 35.8 H (31.0-35.0) g/dl RDW 12.3 (11.0-16.0) % Plt Count 332 (160-400) X10*3/uL MPV 9.1 L (9.4-12.3) fL Immature Gran % (Auto) 0.3 (0.0-0.4) % Neut % (Auto) 60.9 (45-73) % Lymph % (Auto) 30.4 (20-40) % [place] % (Auto) 6.5 (2-11) % Eos % (Auto) 1.2 (0-4) % Baso % (Auto) 0.7 (0-2) % Lymph # (Auto) 3.2 (1.2-4.9) X10*3/uL [place] # (Auto) 0.7 (0.1-1.2) X10*3/uL Eos # (Auto) 0.1 (0.0-0.4) X10*3/uL Baso # (Auto) 0.1 (0.0-0.2) X10*3/uL Abs Immat Gran (auto) 0.03 (0.00-0.03) X10*3/uL Absolute Neuts (auto) 6.4 (2.0-8.3) x10*3/uL Absolute Nucleated RBC 0.000 (0.0-0.012) X10*3/uL Nucleated RBC % (auto) 0.0 (0.0-0.2) /100WBC Sodium 136 (135-145) mmol/L Potassium 3.9 (3.3-5.1) mmol/L Chloride 109 H (96-108) mmol/L Carbon Dioxide 20 L (22-29) mmol/L Anion Gap 11 L (12-20) BUN 6 L (9-16) mg/dL Creatinine 0.75 (0.5-1.4) mg/dL Estim Creat Clear Calc 114.8 Estimated GFR > 60 Random Glucose 92 (60-115) mg/dL Calcium 9.5 (8.4-10.2) mg/dL Magnesium 2.0 (1.6-2.6) mg/dL Total Bilirubin 0.7 (0.0-1.0) mg/dL Direct Bilirubin 0.3 (0.0-0.5) mg/dL AST 13 (5-31) U/L ALT 7 (0-31) U/L Alkaline Phosphatase 46 (39-117) U/L Total Protein 6.6 (6.5-8.0) g/dL Albumin 4.0 (3.5-5.0) g/dL Beta HCG, Quant 73047 mIU/mL Blood Type B Positive Discharge Plan Discharge Clinical Impression: Early stage of Patient Disposition: Left W/O Completing Treatment Prescriptions: No Action prenat.vits,roger,[id number] Tablet 1 tab PO BEDTIME Qty: 30 0RF Interventions: ED Discharge Assessment Last Done: 07/19/23 13:48 Discharge Date/Time: 07/19/23 13:50
[2023-07-19 11:46] LABS: MANUAL DIFF FLAG NO
[2023-07-19 11:52] LABS: Basophils Absolute Auto 0.1 X10*3/uL (0.0-0.2); Basophils Percent Auto 0.7 % (0-2); Eosinophils Absolute Auto 0.1 X10*3/uL (0.0-0.4); Eosinophils Percent Auto 1.2 % (0-4); Hematocrit 40.5 % (37.0-47.0); Hemoglobin 14.5 g/dl (12.0-16.0); Imm Gran Abs Auto 0.03 X10*3/uL (0.00-0.03); Imm Gran Pct Auto 0.3 % (0.0-0.4); Lymphocytes Absolute Auto 3.2 X10*3/uL (1.2-4.9); Lymphocytes Percent Auto 30.4 % (20-40); Mean Corpuscular HGB Conc 35.8 g/dl (31.0-35.0); Mean Corpuscular Hemoglobin 30.6 pg (27.0-33.0); Mean Corpuscular Volume 85.4 fL (80.0-98.0); Mean Platelet Volume 9.1 fL (9.4-12.3); Monocytes Absolute Auto 0.7 X10*3/uL (0.1-1.2); Monocytes Percent Auto 6.5 % (2-11); Neutrophils Absolute Auto 6.4 x10*3/uL (2.0-8.3); Neutrophils Percent Auto 60.9 % (45-73); Platelet Count 332 X10*3/uL (160-400); Red Blood Count 4.74 X10*6/uL (4.20-5.50); Red Cell Distribution Width 12.3 % (11.0-16.0); White Blood Count 10.5 X10*3/uL (4.8-10.8)
[2023-07-19 12:04] LABS: Alanine Aminotransferase 7 U/L (0-31); Alkaline Phosphatase 46 U/L (39-117); Anion Gap 11 (12-20); Aspartate Amino Transferase 13 U/L (5-31); Bilirubin Direct 0.3 mg/dL (0.0-0.5); Bilirubin Total 0.7 mg/dL (0.0-1.0); Blood Urea Nitrogen 6 mg/dL (9-16); Calcium 9.5 mg/dL (8.4-10.2); Carbon Dioxide 20 mmol/L (22-29); Chloride 109 mmol/L (96-108); Creatinine Clr Calc Pharmacy 114.8; Estimated Glomerular Filt Rate > 60; Glucose Random 92 mg/dL (60-115); Potassium 3.9 mmol/L (3.3-5.1); Sodium 136 mmol/L (135-145); Total Protein 6.6 g/dL (6.5-8.0)
[2023-07-19 12:37] LABS: HCG Quantitative 30808 mIU/mL
== END 2023-07-19 13:50 | disposition left against medical advice (07) ==
PROVIDERS: Physician Assistant; Emergency Provider Emergency Medicine; PCP Internal Medicine
DX: O26.91 Pregnancy related conditions, unspecified, first trimester (principal); Z3A.01 Less than 8 weeks gestation of pregnancy; Z79.899 Other long term (current) drug therapy
CPT/HCPCS: 36415; 80048; 80076; 83735; 84702; 85025; 86900; 86901; 99282; 99283